=== PATIENT | male | born 1950 | race Caucasian/White ===

== ENCOUNTER 2018-10-08 13:01 | Emergency (ER) | payer MEDICARE ==
[2018-10-08 13:12] VITALS: BP 144/84
[2018-10-08] MEDS ORDERED: AMOX1TAB61 PO (13:27)
--- NOTE | 2018-10-08 13:27 | PHYS DOC ---
Past History Past Medical History: Hypertension Past Surgical History: No Surgical History Alcohol Use: Heavy Drug Use: None Adult General Chief Complaint Chief Complaint: DENTAL PROBLEM HPI HPI Patient is a 68-year-old male who presents with complaint of swelling of his left jaw that started at about noon today. He denies any pain associated with it. He states that he has had no fever. Patient is uncertain of the cause. He denies any dental pain or injury. Review of Systems Review of Systems Constitutional: Denies fever or chills [] HENT: Positive jaw swelling[] Respiratory: Denies cough or shortness of breath [] Cardiovascular: No additional information not addressed in HPI [] Allergies Allergies Allergies Coded Allergies Type Severity Reaction Last Updated Verified No Known Drug Allergies 10/08/18 No Physical Exam Physical Exam Constitutional: Well developed, well nourished, no acute distress, non-toxic appearance. [] HENT: Normocephalic, atraumatic, bilateral external ears normal, oropharynx moist, no oral exudates, nose normal. F Chi around the mandibular angle demonstrates swelling without redness or tenderness. [] Eyes: PERRLA, EOMI, conjunctiva normal, no discharge. [] Neck: Normal range of motion, no tenderness, supple. [] Cardiovascular: Regular rate and rhythm [] Lungs & Thorax: Bilateral breath sounds clear to auscultation [] Current Patient Data Vital Signs Vital Signs Date Time Temp Pulse Resp B/P (MAP) Pulse Ox O2 Delivery O2 Flow Rate FiO2 10/08/18 13:12 97.9 58 18 100 Room Air EKG EKG [] Radiology/Procedures Radiology/Procedures [] Course & Med Decision Making Course & Med Decision Making Pertinent Labs and Imaging studies reviewed. (See chart for details) [] Dragon Disclaimer Dragon Disclaimer This electronic medical record was generated, in whole or in part, using a voice recognition dictation system. Departure Departure: Impression: Primary Impression: Salivary duct obstruction Disposition: 01 HOME, SELF-CARE Condition: STABLE Referrals: PCP,NO (PCP) Patient Instructions: Salivary Gland Infection, Salivary Stone Scripts Amoxicillin/Potassium Clav (AUGMENTIN [id number] TABLET) 1 Each Tablet 1 TAB PO BID for infection, #20 TAB Prov: YUE ALBRIGHT Jr. DO 10/08/18 UYE ALBRIGHT Jr. DO Oct 08, 2018 13:27
== END 2018-10-08 13:34 | disposition home or self-care (01) ==
LOC: ER 13:01
DX: K11.8 Other diseases of salivary glands (principal); I10 Essential (primary) hypertension
CPT/HCPCS: 99283